=== PATIENT | male | born 1990 | race African-American/Black ===

== ENCOUNTER 2016-10-31 16:30 | Emergency (ER) | payer MEDICAID ==
[~2016-10-31] VITALS: Ht 165.1 cm; Wt 73.6 kg
[2016-10-31 16:33] VITALS: BP 125/82
== END 2016-10-31 18:03 | disposition home or self-care (01) ==
LOC: ED 17:57
DX: R06.00 Dyspnea, unspecified (principal); F14.10 Cocaine abuse, uncomplicated
CPT/HCPCS: 71020; 93005

== ENCOUNTER 2016-12-13 15:58 | Emergency (ER) | payer MEDICAID ==
[~2016-12-13] VITALS: Ht 167.6 cm; Wt 72.7 kg
[2016-12-13 15:59] VITALS: BP 130/70
[2016-12-13] MEDS ORDERED: FLUORESCEIN OPHTHALMIC 1 MG STRIP EACHEYE ONE (16:30)
[2016-12-13] MEDS ORDERED: PROPARACAINE OPHTH 0.5%, 15ML EACHEYE ONE (16:30)
[2016-12-13] MEDS ORDERED: FLUORESCEIN OPHTHALMIC 1 MG STRIP ONE (16:32)
[2016-12-13] MEDS ORDERED: PROPARACAINE OPHTH 0.5%, 15ML ONE (16:32)
== END 2016-12-13 17:58 | disposition home or self-care (01) ==
LOC: ED 17:40
DX: B30.9 Viral conjunctivitis, unspecified (principal); F17.210 Nicotine dependence, cigarettes, uncomplicated
CPT/HCPCS: 99283

== ENCOUNTER 2018-04-26 07:41 | Emergency (ER) | payer SELFPAY ==
[~2018-04-26] VITALS: Ht 167.6 cm; Wt 63.6 kg
[2018-04-26] MEDS ORDERED: SODIUM CHLORIDE 0.9% 1,000ML IVBOLUS ONE (08:00)
[2018-04-26] MEDS ORDERED: FAMOTIDINE 20 MG/2 ML IVP ONE (08:00)
[2018-04-26] MEDS ORDERED: ONDANSETRON ODT 4 MG PO ONE (08:00)
[2018-04-26] MEDS ORDERED: MAALOX/HYOSCYAMINE/LIDOCAINE 45 ML BTL PO ONE (08:00)
[2018-04-26] MEDS ORDERED: ONDANSETRON ODT 4 MG ONE (08:12)
[2018-04-26] MEDS ORDERED: MAALOX/HYOSCYAMINE/LIDOCAINE 45 ML BTL ONE (08:13)
[2018-04-26] MEDS ORDERED: FAMOTIDINE 20 MG/2 ML ONE (08:13)
[2018-04-26 08:27] LABS: BASOPHILS # (AUTO) 0.06 x10^3/uL (0-0.1); BASOPHILS % (AUTO) 0 % (0-1); EOSINOPHILS # (AUTO) 0.06 x10^3/uL (0-0.4); EOSINOPHILS % (AUTO) 0 % (1-7); LYMPHOCYTES # (AUTO) 1.75 x10^3/uL (1-3.4); LYMPHOCYTES % (AUTO) 12 % (22-44); MD NO; MEAN CORPUSCULAR HEMOGLOBIN 30.7 pg (27.5-34.5); MEAN CORPUSCULAR VOLUME 93.1 fL (81-97); MEAN PLATELET VOLUME 8.5 fL (7.4-10.4); MONOCYTES # (AUTO) 1.15 x10^3/uL (0.2-0.8); MONOCYTES % (AUTO) 8 % (2-9); NEUTROPHILS # (AUTO) 11.34 x10^3/uL (1.8-6.8); NEUTROPHILS % (AUTO) 79 % (42-75); PLATELET COUNT 209 x10^3/uL (130-400); RED BLOOD COUNT 6.05 x10^6/uL (4.38-5.82); RED CELL DISTRIBUTION WIDTH 12.5 % (9.4-14.8)
[2018-04-26 08:32] LABS: ALANINE AMINOTRANSFERASE 31 U/L (12-78); ANION GAP 11 mmol/L (5-15); CHLORIDE 97 mmol/L (98-107); CREATININE 1.59 mg/dL (0.7-1.3)
[2018-04-26 08:34] LABS: ALKALINE PHOSPHATASE 85 U/L (45-117); BILIRUBIN,TOTAL 1.3 mg/dL (0.2-1.0); TOTAL PROTEIN 9.8 g/dL (6.4-8.2)
[2018-04-26 09:02] VITALS: BP 137/97
== END 2018-04-26 10:22 | disposition home or self-care (01) ==
LOC: ED 08:56
DX: K29.20 Alcoholic gastritis without bleeding (principal)
CPT/HCPCS: 36415; 80053; 83690; 85025; 96361; 96374; 99284; J7030; Q0162; S0028

== ENCOUNTER 2018-08-21 17:34 | Emergency (ER) | payer MEDICAID ==
[~2018-08-21] VITALS: Ht 167.6 cm; Wt 67.6 kg
[2018-08-21 17:49] VITALS: BP 160/100
== END 2018-08-21 18:14 | disposition home or self-care (01) ==
LOC: ED 17:55
DX: K08.89 Other specified disorders of teeth and supporting structures (principal)
CPT/HCPCS: 99283

== ENCOUNTER 2019-11-15 23:13 | Emergency (ER) | payer SELFPAY ==
[~2019-11-15] VITALS: Ht 167.6 cm; Wt 67.2 kg
[2019-11-15 23:18] VITALS: BP 138/97
[2019-11-16] MEDS ORDERED: MAALOX/HYOSCYAMINE/LIDOCAINE 45 ML BTL ONE (00:11)
--- NOTE | 2019-11-16 00:14 | NUR ---
PT MEDICATED PER MAR
[2019-11-16 00:25] LABS: BASOPHILS # (AUTO) 0.02 x10^3/uL (0-0.1); BASOPHILS % (AUTO) 0 % (0-1); EOSINOPHILS # (AUTO) 0.01 x10^3/uL (0-0.4); EOSINOPHILS % (AUTO) 0 % (1-7); LYMPHOCYTES # (AUTO) 1.46 x10^3/uL (1-3.4); LYMPHOCYTES % (AUTO) 10 % (22-44); MD NO; MEAN CORPUSCULAR HEMOGLOBIN 30.2 pg (27.5-34.5); MEAN CORPUSCULAR HGB CONC 33.3 g/dL (33.2-36.2); MEAN CORPUSCULAR VOLUME 90.7 fL (81-97); MEAN PLATELET VOLUME 8.4 fL (7.4-10.4); MONOCYTES # (AUTO) 0.19 x10^3/uL (0.2-0.8); MONOCYTES % (AUTO) 1 % (2-9); NEUTROPHILS # (AUTO) 13.13 x10^3/uL (1.8-6.8); NEUTROPHILS % (AUTO) 89 % (42-75); PLATELET COUNT 252 x10^3/uL (130-400); RED BLOOD COUNT 5.34 x10^6/uL (4.38-5.82); RED CELL DISTRIBUTION WIDTH 12.7 % (9.4-14.8)
[2019-11-16] MEDS ORDERED: MAALOX/HYOSCYAMINE/LIDOCAINE 45 ML BTL PO ONE (00:30)
[2019-11-16 00:33] LABS: ALANINE AMINOTRANSFERASE 38 U/L (12-78); ALBUMIN 4.4 g/dL (3.4-5.0); ANION GAP 11 mmol/L (5-15); CALCIUM 9.3 mg/dL (8.5-10.1); CHLORIDE 106 mmol/L (98-107); CREATININE 1.38 mg/dL (0.7-1.3)
[2019-11-16 00:36] LABS: ALKALINE PHOSPHATASE 76 U/L (45-117); BILIRUBIN,TOTAL 0.8 mg/dL (0.2-1.0); TOTAL PROTEIN 9.2 g/dL (6.4-8.2)
--- NOTE | 2019-11-16 01:08 | NUR ---
TASK RN: PT REPORTS IMPROVEMENT IN PAIN W/ MEDICATIONS. DC EDUCATION PROVIDED, PT DEMONSTRATES UNDERSTANDING. PT AMBULATED STEADILY TO DC WITH RN.
== END 2019-11-16 01:10 | disposition home or self-care (01) ==
LOC: ED 11-16 00:10
DX: K29.20 Alcoholic gastritis without bleeding (principal); F10.10 Alcohol abuse, uncomplicated; F14.10 Cocaine abuse, uncomplicated; F17.210 Nicotine dependence, cigarettes, uncomplicated; R00.0 Tachycardia, unspecified; R94.31 Abnormal electrocardiogram [ECG] [EKG]; Y90.0 Blood alcohol level of less than 20 mg/100 ml
CPT/HCPCS: 36415; 80053; 83690; 85025; 93005; 99284

== ENCOUNTER 2020-12-25 02:33 | Emergency (ER) | payer MEDICAID ==
[~2020-12-25] VITALS: Ht 167.6 cm; Wt 71.0 kg
--- NOTE | 2020-12-25 03:34 | NUR ---
furnace hand: pt from lobby to room 43
--- NOTE | 2020-12-25 03:50 | NUR ---
PT C/O OF DENTAL PAIN IN RIGHT BACK OF MOUTH SINCE LAST NIGHT RATED AT 7.5/10. PT TOOTH NOTED TO BE BROWN AND ENCAVED. PT STATES TAKING TO [facility] 10-325 1 HOUR AGO. ATTACHED TO MONITORS. VSS. NADN. BREATHING EVEN AND UNLABORED. BED IN LOW POSITION. CALL [facility]ITH WITHIN REACH. RAILS EBNGAGED NO ADDITONAL QUESTIONS OR NEEDS AT THIS TIME. WCTM.
[2020-12-25 03:52] VITALS: BP 145/93
[2020-12-25] MEDS ORDERED: IBUPROFEN 800 MG TABLET ONE (03:58)
[2020-12-25] MEDS ORDERED: IBUPROFEN 800 MG TABLET PO ONE (04:00)
[2020-12-25] MEDS ORDERED: OXYcodone/APAP 5/325MG TABLET PO ONE (04:00)
--- NOTE | 2020-12-25 04:10 | NUR ---
Patient given discharge instructions and they have confirmed that they understand the instructions. Patient ambulatory with steady gait. NAD, all questions answered appropriately, denies additional needs at this time. No personal belongings left in room after discharge.
== END 2020-12-25 04:12 | disposition home or self-care (01) ==
LOC: ED 03:40
DX: K02.9 Dental caries, unspecified (principal); K08.89 Other specified disorders of teeth and supporting structures
CPT/HCPCS: 99283